=== PATIENT | female | born 1930 | race African-American/Black ===

== ENCOUNTER → 2017-01-11 | Outpatient (CLI) | payer MEDICARE ==
[~2017-01-11] MED LIST: ALPR.25 PO; AMLO10 PO; ATEN-104 PO; DONE10TA14; ECOT81TA2 PO; MULT-65 PO; NAME5TAB2 PO
[2017-01-11 08:06] LABS: AUTOMATED NEUTROPHIL # 2.4 TH/MM3 (1.8-7.7); BASOPHIL # 0.1 TH/MM3 (0-0.2); BASOPHIL % 1.1 % (0.0-2.0); EOSINOPHIL # 0.8 TH/MM3 (0-0.4); EOSINOPHIL % 13.9 % (0.0-4.0); HEMATOCRIT 38.1 % (35.0-46.0); HEMO FLAGS DIFF FINAL; LYMPH % 37.7 % (9.0-44.0); LYMPHOCYTE # 2.3 TH/MM3 (1.0-4.8); MEAN CELL VOLUME 83.4 FL (80.0-100.0); MEAN CORPUSCULAR HEMOGLOBIN 27.6 PG (27.0-34.0); MEAN CORPUSCULAR HGB CONC 33.1 % (32.0-36.0); NEUT % 39.3 % (16.0-70.0); PLATELET COUNT 254 TH/MM3 (150-450); RED BLOOD COUNT 4.57 MIL/MM3 (4.00-5.30); RED CELL DISTRIBUTION WIDTH 13.3 % (11.6-17.2)
[2017-01-11 08:26] LABS: BACTERIA, URINE OCC /hpf; BLOOD, URINE NEG (NEG); GLUCOSE,URINE NEG (NEG); KETONE, URINE NEG (NEG); MUCUS URINE FEW /lpf (OCC); NITRITE,URINE NEG (NEG); SQUAMOUS EPITHELIAL CELL URINE 19 /hpf (0-5); URINE COLOR YELLOW (YELLW/STRAW)
[2017-01-11 08:36] LABS: ALT (GPT) 19 U/L (10-53); ANION GAP 10 MEQ/L (5-15); AST (GOT) 11 U/L (15-37); BICARBONATE 29.2 MEQ/L (21.0-32.0); CHLORIDE 105 MEQ/L (98-107); GLOMERULAR FILTRATION RATE 62 ML/MIN (>89); GLUCOSE,FASTING 113 MG/DL (74-99); POTASSIUM 3.9 MEQ/L (3.5-5.1); SODIUM (NA) 144 MEQ/L (136-145)
[2017-01-11 08:39] LABS: MICRO ALBUMIN RANDOM URINE RAW 31.3 MG/L (0.0-30.0)
[2017-01-11 08:54] LABS: ALKALINE PHOSPHATASE 42 U/L (45-117); BLOOD UREA NITROGEN 12 MG/DL (7-18); HDL CHOLESTEROL 63.6 MG/DL (40.0-60.0); LDL CHOLESTEROL 84 MG/DL (0-99); TOTAL BILIRUBIN ADULT 0.4 MG/DL (0.2-1.0)
[2017-01-11 13:36] LABS: HEMOGLOBIN A1a 0.6 %; HEMOGLOBIN A1b 2.1 %; HEMOGLOBIN Ao 84.3 %; HEMOGLOBIN P3 3.7 %
== END ==
LOC: CLAB 07:17
PROVIDERS: ATTEND General Practice
DX: E78.00 Pure hypercholesterolemia, unspecified (principal); I10 Essential (primary) hypertension; E11.9 Type 2 diabetes mellitus without complications
CPT/HCPCS: 36415; 80053; 80061; 81001; 82043; 83036; 84443; 85025

== ENCOUNTER 2017-07-20 10:42 | Emergency (ER) | payer MEDICARE ==
[~2017-07-20] VITALS: Ht 165.1 cm; Wt 70.0 kg
[2017-07-20 10:44] VITALS: BP 175/77; PULSE 87; RESP 20; TEMP 98.3; O2SAT 97
[2017-07-20] MEDS ORDERED: METF500T PO (11:01)
[2017-07-20] MEDS ORDERED: AMLO10TA2 PO (11:01)
[2017-07-20] MEDS ORDERED: MEMA1TAB2 PO (11:01)
[2017-07-20] MEDS ORDERED: POTA10TA2 PO (11:01)
[2017-07-20] MEDS ORDERED: METO50TA PO (11:01)
[2017-07-20] MEDS ORDERED: DONE10TA7 PO (11:01)
[2017-07-20] MEDS ORDERED: ALPR.25 PO (11:24)
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
[2017-07-20] MEDS ORDERED: ALPRAZolam 0.25 MG TAB PO ONE (11:30)
[2017-07-20 12:07] VITALS: BP 171/84
== END 2017-07-20 12:08 | disposition home or self-care (01) ==
LOC: NEPD 10:42
DX: F41.9 Anxiety disorder, unspecified (principal)
CPT/HCPCS: 99283

== ENCOUNTER → 2017-08-16 | Outpatient (CLI) | payer MEDICARE ==
[~2017-08-16] MED LIST changes: -AMLO10 PO; +AMLO10TA2 PO; -ATEN-104 PO; -DONE10TA14; +DONE10TA7 PO; -ECOT81TA2 PO; +MEMA1TAB2 PO; +METF500T PO; +METO50TA PO; -MULT-65 PO; -NAME5TAB2 PO; +POTA10TA2 PO
[2017-08-16 08:32] LABS: AUTOMATED NEUTROPHIL # 2.5 TH/MM3 (1.8-7.7); BASOPHIL % 0.8 % (0.0-2.0); EOSINOPHIL # 0.4 TH/MM3 (0-0.4); EOSINOPHIL % 6.9 % (0.0-4.0); HEMATOCRIT 38.8 % (35.0-46.0); HEMO FLAGS DIFF FINAL; LYMPH % 39.3 % (9.0-44.0); LYMPHOCYTE # 2.2 TH/MM3 (1.0-4.8); MEAN CELL VOLUME 84.8 FL (80.0-100.0); MEAN CORPUSCULAR HEMOGLOBIN 27.6 PG (27.0-34.0); MEAN CORPUSCULAR HGB CONC 32.6 % (32.0-36.0); MONO % 9.4 % (0.0-8.0); NEUT % 43.6 % (16.0-70.0); PLATELET COUNT 254 TH/MM3 (150-450); RED BLOOD COUNT 4.58 MIL/MM3 (4.00-5.30); RED CELL DISTRIBUTION WIDTH 13.5 % (11.6-17.2); WHITE BLOOD COUNT 5.7 TH/MM3 (4.0-11.0)
[2017-08-16 08:46] LABS: BACTERIA, URINE RARE /hpf; BLOOD, URINE NEG (NEG); GLUCOSE,URINE NEG (NEG); KETONE, URINE NEG (NEG); NITRITE,URINE NEG (NEG); PH, URINE 6.5 (5.0-8.5); SQUAMOUS EPITHELIAL CELL URINE 2 /hpf (0-5); URINE COLOR LIGHT-YELLOW (YELLW/STRAW)
[2017-08-16 08:55] LABS: MICRO ALBUMIN RANDOM URINE RAW 18.2 MG/L (0.0-30.0)
[2017-08-16 08:59] LABS: ANION GAP 6 MEQ/L (5-15); AST (GOT) 13 U/L (15-37); BICARBONATE 27.8 MEQ/L (21.0-32.0); BLOOD UREA NITROGEN 12 MG/DL (7-18); CHLORIDE 103 MEQ/L (98-107); GLOMERULAR FILTRATION RATE 53 ML/MIN (>89); GLUCOSE,FASTING 99 MG/DL (74-99); POTASSIUM 4.5 MEQ/L (3.5-5.1); SODIUM (NA) 137 MEQ/L (136-145)
[2017-08-16 09:01] LABS: ALT (GPT) 14 U/L (10-53)
[2017-08-16 09:11] LABS: ALKALINE PHOSPHATASE 42 U/L (45-117); HDL CHOLESTEROL 69.2 MG/DL (40.0-60.0); LDL CHOLESTEROL 84 MG/DL (0-99); TOTAL BILIRUBIN ADULT 0.4 MG/DL (0.2-1.0)
[2017-08-16 17:17] LABS: HEMOGLOBIN A1a 1.1 %; HEMOGLOBIN A1b 2.2 %; HEMOGLOBIN Ao 84.4 %; HEMOGLOBIN LA1C 1.9 %; HEMOGLOBIN P3 3.8 %
== END ==
LOC: CLAB 07:51
DX: F03.90 Unspecified dementia, unspecified severity, without behavioral disturbance, psychotic disturbance, mood disturbance, and anxiety (principal); E11.9 Type 2 diabetes mellitus without complications; I10 Essential (primary) hypertension; E78.00 Pure hypercholesterolemia, unspecified
CPT/HCPCS: 36415; 80053; 80061; 81001; 82043; 83036; 84443; 85025

== ENCOUNTER → 2018-02-10 | Outpatient (CLI) | payer MEDICARE ==
[2018-02-10 09:35] LABS: AUTOMATED NEUTROPHIL # 2.4 TH/MM3 (1.8-7.7); BASOPHIL % 0.8 % (0.0-2.0); EOSINOPHIL # 0.4 TH/MM3 (0-0.4); HEMOGLOBIN 12.3 GM/DL (11.6-15.3); LYMPH % 42.2 % (9.0-44.0); LYMPHOCYTE # 2.4 TH/MM3 (1.0-4.8); MEAN CELL VOLUME 83.9 FL (80.0-100.0); MEAN CORPUSCULAR HGB CONC 33.4 % (32.0-36.0); MEAN PLATELET VOLUME 8.3 FL (7.0-11.0); MONO % 7.9 % (0.0-8.0); MONOCYTE # 0.5 TH/MM3 (0-0.9); NEUT % 42.1 % (16.0-70.0); PLATELET COUNT 273 TH/MM3 (150-450); RED BLOOD COUNT 4.41 MIL/MM3 (4.00-5.30); RED CELL DISTRIBUTION WIDTH 13.5 % (11.6-17.2); WHITE BLOOD COUNT 5.7 TH/MM3 (4.0-11.0)
[2018-02-10 09:37] LABS: BACTERIA, URINE OCC /hpf; BILIRUBIN, URINE NEG (NEG); BLOOD, URINE NEG (NEG); GLUCOSE,URINE NEG (NEG); HYALINE CAST, URINE 2 /lpf (RARE); KETONE, URINE NEG (NEG); MUCUS URINE FEW /lpf (OCC); NITRITE,URINE NEG (NEG); PH, URINE 5.5 (5.0-8.5); SQUAMOUS EPITHELIAL CELL URINE 39 /hpf (0-5); TRANSITIONAL EPI CELLS, URINE <1 /hpf; URINE COLOR YELLOW (YELLW/STRAW); URINE LEUKOCYTE ESTERASE LARGE (NEG)
[2018-02-10 09:52] LABS: ALBUMIN 3.7 GM/DL (3.4-5.0); AST (GOT) 17 U/L (15-37); BICARBONATE 27.1 MEQ/L (21.0-32.0); BLOOD UREA NITROGEN 18 MG/DL (7-18); CALCIUM 8.8 MG/DL (8.5-10.1); CHLORIDE 105 MEQ/L (98-107); CREATININE 1.16 MG/DL (0.50-1.00); GLOMERULAR FILTRATION RATE 54 ML/MIN (>89); GLUCOSE,FASTING 88 MG/DL (74-99); SODIUM (NA) 140 MEQ/L (136-145)
[2018-02-10 09:53] LABS: ALT (GPT) 16 U/L (10-53); CHOLESTEROL 187 MG/DL (120-200)
[2018-02-10 10:03] LABS: ALKALINE PHOSPHATASE 38 U/L (45-117); CHOLESTEROL/ HDL RATIO 2.46 RATIO; HDL CHOLESTEROL 75.9 MG/DL (40.0-60.0); LDL CHOLESTEROL 97 MG/DL (0-99); TOTAL BILIRUBIN ADULT 0.3 MG/DL (0.2-1.0); TOTAL PROTEIN 7.9 GM/DL (6.4-8.2); TRIGLYCERIDES 73 MG/DL (42-150)
[2018-02-10 17:07] LABS: HEMOGLOBIN A1C 5.7 % (4.3-6.0)
== END ==
LOC: CLAB 09:00
PROVIDERS: ATTEND General Practice
DX: I10 Essential (primary) hypertension (principal); E11.9 Type 2 diabetes mellitus without complications; E78.00 Pure hypercholesterolemia, unspecified; F03.90 Unspecified dementia, unspecified severity, without behavioral disturbance, psychotic disturbance, mood disturbance, and anxiety
CPT/HCPCS: 36415; 80053; 80061; 81001; 82043; 83036; 84443; 85025